=== PATIENT | female | born 1995 | race Caucasian/White ===

== ENCOUNTER 2016-10-14 04:59 | Inpatient (IN) | payer OTHER ==
--- NOTE | ~2016-10-14 | PN ---
Unit #: [id number] #: [id number] Patient: MIA GOLDEN [id number] [facility] [address] [place] [address] [id number] I MR#: [id number] NAME: MIA GOLDEN. ROOM: [facility] Age: 21 Sex: F Admission Date: 10/14/2016 : 1995 Attending Physician: Eddie Groves M.D. Admitting Physician: Eddie Groves M.D. Primary Care Physician: Primary Care Physician Heather JORDAN PROGRESS NOTES DATE 10/15/2016 DISCUSSION Ms. Golden is a 21-year-old white female who was seen today and chart was reviewed and case was discussed with the staff. She has been anxious, withdrawn and rather seclusive to herself. Meanwhile, she has been taking medications and tolerating them fairly well with no reported side effects. MENTAL STATUS EXAMINATION Young white female who was casually dressed with fair personal hygiene and appears to be in no acute distress or discomfort. She was awake and alert on interaction with intact orientation. Her mood was anxious with congruent affect. Her speech is slow and goal-directed. She denies any suicidal or homicidal ideations. Her insight and judgement remains slightly impaired. TREATMENT PLAN 1. Will continue on current medications and treatment protocol. Will monitor her response to the medications and make further adjustments as needed. 2. Will continue to follow up. Dictated by... Eugene Gatica/iron TD: 10/15/2016 21:00 JOB #: [id number] Unit #: [id number] #: [id number] Patient: MIA GOLDEN JULIAN PROGRESS NOTES Page 1 of 1 X Eddie Groves MD PROGRESS NOTE
--- NOTE | ~2016-10-14 | CO ---
Unit #: [id number] #: [id number] Patient: MIA OLIVER [id number] [facility] [address] [place] [address] [id number] MR#: [id number] NAME: MIA OLIVER. ROOM: [facility] Age: 21 Sex: F Admission Date: 10/14/2016 : 1995 Attending Physician: Eddie Groves M.D. Primary Care Physician: Primary Care Physician No Consultation Date: 10/14/2016 CONSULTATION REPORT REVISED REPORT SUBJECTIVE Mia was seen for her admission H and P on 10/14/2016. At that time, she reported to us that she had been diagnosed with chlamydia, had been given a prescription but was noncompliant with that. This was addressed under her admission H and P. Please see H and P dated 10/14/2016. Dictated by... Pippa Matta P.A.-C. for Eugene Mcmanus/robbi TD: 10/14/2016 18:55 JOB #: [id number] CONSULTATION REPORT Page 1 of 1 X Pippa Matta CONSULTATION REPORT
--- NOTE | ~2016-10-14 | HP ---
Unit #: [id number] #: [id number] Patient: MIA OLIVER [id number] [place] [address] [id number] MR#: [id number] NAME: MIA OLIVER. ROOM: [facility] Age: 21 Sex: F Admission Date: 10/14/2016 : 1995 Attending Physician: Eddie Groves M.D. Admitting Physician: Eddie Groves M.D. Primary Care Physician: Primary Care Physician No HISTORY AND PHYSICAL HISTORY OF PRESENT ILLNESS Mia is a 21 year old admitted to [facility] because of her polysubstance abuse which includes IV heroin and methamphetamine. PAST MEDICAL HISTORY 1. Long history of poly-illicit substance abuse to include IV drugs. 2. Hepatitis C. 3. Morbid obesity. PAST SURGICAL HISTORY Nothing reported. ALLERGIES No known drug allergies. SOCIAL HISTORY Smokes 1 pack per day. Denies alcohol. Admits to a long history of illicit substance abuse to include IV heroin and methamphetamine. FAMILY HISTORY Medically noncontributory. REVIEW OF SYSTEMS CONSTITUTIONAL: No fever or chills. HEENT: Denies any sore throat, ear pain or runny nose. CARDIOVASCULAR: Denies chest pain, irregular heart rhythm or palpitations. CHEST: Denies shortness of breath or cough. No hemoptysis. GASTROINTESTINAL: Denies nausea, vomiting, diarrhea or chronic constipation. ENDOCRINE: Denies history of increased thirst or urination. No recent significant weight loss or gain. GENITOURINARY: Denies dysuria, frequency, or hematuria. SKIN: Denies any rashes. HEMATOLOGIC: Denies history of increased bleeding or bruising. MUSCULOSKELETAL: Denies any hot, swollen joints. No generalized muscle pain. NEUROLOGIC: Denies problems with vision or speech. No frequent, severe headaches. No numbness, tingling or weakness in any extremities. Denies loss of bladder or bowel control. CURRENT MEDICATIONS Detox protocol. Unit #: [id number] #: [id number] Patient: MIA OLIVER PHYSICAL EXAMINATION GENERAL: Alert, well-nourished, in no apparent distress. VITAL SIGNS: Blood pressure 110/60, heart rate 80, respirations 16, temperature 98.6. WEIGHT: 210. HEIGHT: 5 feet 8 inches. SKIN: Warm and dry without rash or lesion. HEENT: Normocephalic. TMs not viewed. Oral and nasal passages clear. Conjunctivae clear. PERRLA. EOMs intact. NECK: Supple without lymphadenopathy or thyromegaly. HEART: Regular rate and rhythm without murmur. LUNGS: Clear. ABDOMEN: Soft, nontender. : Not done. EXTREMITIES: No evidence of cyanosis, clubbing or edema. Moves all without focal deficit. NEUROLOGICAL: Grossly within normal limits. Cranial Nerves: II: Visual jacobs are intact. III, IV AND : Extraocular movements are intact. Pupils are equal, round and reactive to light. V: Facial sensation is grossly normal. VII: Facial movements and expression are normal. VIII: Auditory acuity grossly intact. IX, X: Uvula is midline. Phonation is normal. XI: Patient shrugs shoulders and turns head normally. XII: Tongue protrudes in the midline. Sensory and Motor Function: Sensory and motor sensation is grossly normal. Motor: moves all extremities well. Coordination: Gait is normal. Deep Tendon Reflexes: Intact. IMPRESSION 1. Psychiatric admission. 2. Long history of illicit substance abuse to include IV drugs. 3. Hepatitis C. 4. Patient reports that she was diagnosed with Chlamydia prior to this admission. She was given prescription but has been noncompliant with that. RECOMMENDATIONS PSYCHIATRIC: Per psychiatrist. MEDICAL: 1. See no contraindications to participate in facility's activities. 2. Detox per protocol. 3. Patient can follow up with her PCP concerning the diagnosis of Chlamydia. She is encouraged to finish the medication that has already been prescribed for her. MEDICAL PROGNOSIS Good. MEDICAL CONDITION Stable. Dictated by... Pippa Matta P.A.-C. for Kaitlin Dumont M.D. Unit #: [id number] #: [id number] Patient: MIA OLIVER AMARI/iron TD: 10/14/2016 18:33 JOB #: [id number] HISTORY AND PHYSICAL Page 1 of 1 X Pippa Matta HISTORY AND PHYSICAL
--- NOTE | ~2016-10-14 | PN ---
Unit #: [id number] #: [id number] Patient: MIA GOLDEN [id number] [facility] [address] [place] [address] [id number] I MR#: [id number] NAME: MIA GOLDEN. ROOM: [facility] Age: 21 Sex: F Admission Date: 10/14/2016 : 1995 Attending Physician: Eddie Groves M.D. Admitting Physician: Eddie Groves M.D. Primary Care Physician: Primary Care Physician Heather JORDAN PROGRESS NOTES DATE 10/16/2016 DISCUSSION Ms. Golden is a 21-year-old white female who was seen today and chart was reviewed and case was discussed with the staff. She has been anxious though reports doing better in her mood and depression and has been functioning very well and has been taking medications and tolerating them fairly well. MENTAL STATUS EXAMINATION Young white female who was casually dressed with fair personal hygiene and appears to be in no acute distress or discomfort. She was awake and alert on interaction with intact orientation. Her mood was anxious and depressed with congruent affect. Her speech is slow and . She denies any suicidal or homicidal ideations. Her insight and judgement remains slightly impaired. TREATMENT PLAN Will continue on current treatment protocol. Will monitor her response to the medications. Will consider doing discharge planning tomorrow. Dictated by... Eugene Gatica/iron TD: 10/16/2016 16:19 JOB #: [id number] Unit #: [id number] #: [id number] Patient: MIA GOLDEN PEAEUGENIO PROGRESS NOTES Page 1 of 1 X Eddie Groves MD X PROGRESS NOTE
--- NOTE | ~2016-10-14 | PA ---
Unit #: [id number] #: [id number] Patient: MIA OLIVER [id number] [facility] [address] [place] [address] [id number] I MR#: [id number] NAME: MIA OLIVER. ROOM: 82 Age: 21 Sex: F Admission Date: 10/14/2016 : 1995 Date of Assessment: Attending Physician: Eddie Groves M.D. Admitting Physician: Eddie Groves M.D. Primary Care Physician: Primary Care Physician No PSYCHIATRIC ASSESSMENT DATE OF SERVICE 10/14/2016. IDENTIFYING DATA Ms. Berrios is a 21-year-old single white female, who is a resident of [place], [place], and was self-referred to the hospital on a voluntary basis. CHIEF COMPLAINT "Increase in having suicidal thoughts, trying to get my life back." HISTORY OF PRESENT ILLNESS Ms. Berrios is a 21-year-old white female, who was self-referred to the hospital, stating she is scared of herself and that she has been having suicidal thoughts and she is trying to get her life back, "but due to my addiction to heroin." The patient reports that she feels hopeless and helpless, and that she has been in [place], [place] for the past year until she returned back to [place], [place] about 2 weeks ago and reports that she quit her job over a year ago due to her addiction to drugs and reports that she has been homeless for the last 2 years, living here and there, and her mother when the patient was 9 years old and father was not a major part of the patient's life and the patient reports no income and having contracted hepatitis C limited to no support system, increasing depression with feelings of hopelessness and helplessness, and suicidal ideations and was seen to be a danger to self and as such, recommendation for inpatient level of care for safety and stabilization was made and the patient was admitted to the inpatient unit. SUBSTANCE ABUSE HISTORY The patient reports extensive history of substance abuse and dependence including alcohol, cannabis, opioids, amphetamines, and benzodiazepines, and currently opioids appear to be her drug of choice. She reports that she has been using 1 to 2 g of IV heroin a day and also has been using methamphetamine IV few days a week and has been smoking cannabis on everyday basis. PAST PSYCHIATRIC HISTORY The patient has had history of chemical dependency [facility] at [facility], at the [facility] in [place], as well as at [facility] in [place], [place], and [facility], and review of the medical records indicate currently she is not active in treatment program, is not seeing a psychiatrist, not taking any psychotropic medications. Unit #: [id number] #: [id number] Patient: MIA OLIVER PAST MEDICAL HISTORY The patient's medical history is significant for hepatitis C. ALLERGIES No known medication allergies. PERSONAL AND SOCIAL HISTORY A 21-year-old white female, who reports that she is single, unemployed, and essentially homeless and has poor social support system. MENTAL STATUS EXAMINATION Young white female who was casually dressed with fair personal hygiene, appears to be in no acute distress or discomfort. She was awake and alert on interaction with intact orientation to time, place, and person. Her mood was anxious with a congruent affect. Her speech was slow and restricted in content. Her thought processes were disorganized with some looseness of associations and suicidal ideations. Her insight and judgment remain significantly impaired. DIAGNOSTIC IMPRESSION Psychiatric: Major depressive disorder, recurrent, moderate, without psychotic features; opioid dependence, moderate and acute withdrawals; methamphetamine abuse, moderate; cannabis dependence, moderate. Medical: Hepatitis C. Stressors: Moderate psychosocial stressors. TREATMENT PLAN 1. The patient has presented with history of substance abuse and mood disorder, and has been decompensating and will need inpatient hospitalization for safety and stabilization. We will start her back on her home medications. We will adjust the medications and monitor response. 2. Supportive therapy was provided to the patient. 3. Safe, structured, and nourishing environment will be provided. ESTIMATED LENGTH OF STAY 5 to 7 days. ABILITY TO HELP SELF Limited. WILLINGNESS TO HELP SELF The patient appears to be willing to help self. STRENGTHS 1. Communicative. 2. Cooperative. PROBLEMS 1. Chronic dysphoric symptoms. 2. Chronic chemical dependency. 3. Poor social support system. DISCHARGE CRITERIA This will be contingent upon the patient's ability to show resolution of her depression and anxiety and her ability to go through detox without having any significant withdrawal symptoms as well as her ability to stay safe to herself, particularly after discharge from the hospital. Unit #: [id number] #: [id number] Patient: MIA OLIVER by... Eugene Gatica/robbi TD: 10/14/2016 07:51 JOB #: [id number] PSYCHIATRIC ASSESSMENT Page 1 of 1 X Eddie Groves MD PSYCHIATRIC ASSESSMENT
--- NOTE | ~2016-10-14 | DS ---
Unit #: [id number] #: [id number] [facility] [id number] [facility] [address] [place] [address] [id number] I MR#: [id number] NAME: MIA OLIVER. ROOM: [facility] Age: 21 Sex: F Admission Date: 10/14/2016 : 1995 Discharge Date: 10/17/2016 Attending Physician: Eddie Groves M.D. Primary Care Physician: Primary Care Physician No DISCHARGE SUMMARY IDENTIFYING DATA Ms. Oliver is a 21-year-old single white female, who is a resident of [place], [place], and was self-referred to the hospital on a voluntary basis. DISCHARGE DIAGNOSES Psychiatric: Major depressive disorder, recurrent, moderate, without psychotic features; opioid dependence, moderate and acute withdrawals; methamphetamine dependence, moderate; cannabis abuse, moderate. Medical: Hepatitis C. Stressors: Moderate psychosocial stressors. HISTORY OF PRESENT ILLNESS Please see initial psychiatric evaluation for details. PAST PSYCHIATRIC HISTORY Please see initial psychiatric evaluation for details. PAST MEDICAL HISTORY Please see initial psychiatric evaluation for details. HOSPITAL COURSE The [facility] and was oriented to the hospital environment. Routine p.r.n. medications were initiated, and she was started back on her home medications and detox protocol was initiated. However, the patient was seen to be showing very poor insight into her situation, was not really participating much in treatment related activities and was rather trying to flirt with other male patients. She was also not really carrying on much conversation with me and then she just decided that she wanted to leave and was forcing to leave and even though I encouraged and recommended that she should complete and continue the treatment, she was not willing to follow up with treatment recommendations and was denying any suicidal or homicidal ideations, and was not meeting criteria for involuntary psychiatric hospitalization and as such, it was decided that she will be discharged home and will continue treatment on an outpatient basis. DISCHARGE MEDICATIONS None. DISCHARGE CONDITION Stable. Unit #: [id number] #: [id number] Patient: MIA OLIVER PROGNOSIS Fair. Dictated by... Eugene Gatica/robbi TD: 10/17/2016 06:24 JOB #: [id number] DISCHARGE SUMMARY Page 1 of 1 X Eddie Groves MD DISCHARGE SUMMARY
[~2016-10-14 04:59] MED LIST: ADDERALL PO; ADDERALL10 MG; ADDERALLXR PO; BACTRIM DS TABL1 TA1 PO; BACTROBAN22 GM TOP; DESYREL50 M1 PO; DOXYCYCLINE150 MG PO; FLEXERIL10 MG PO; PHENERGAN25 MG PO; PRILOSEC20 MG DOB; PROZAC PO; PYRIDIUM; ULTRAM PO; VICODIN 5/1 TAB 5/50 PO; VYVANSE50 MG PO; [UNRECOGNIZED DRUG - OTHER]
[2016-10-14 09:37] LABS: BASOPHIL% 0.4 % (0-2.5); EOSINOPHIL# 0.3 X10e3 (0-0.7); EOSINOPHIL% 3.8 % (0.0-7.0); HEMATOCRIT 35.5 % (35.0-45.0); HEMOGLOBIN 11.4 gm/dL (12.0-16.0); LYMPHOCYTE# 2.6 X10e3 (1.0-3.5); LYMPHOCYTE% 35.1 % (17.0-45.0); MEAN CELL VOLUME 84.5 FL (83-96); MEAN CORPUSCULAR HEMOGLOBIN 27.2 PG (28-34); MEAN CORPUSCULAR HGB CONC 32.2 g/dL (30-36); MEAN PLATELET VOLUME 7.3 FL (6.5-11.5); MONOCYTE# 0.7 X10e3 (0-1.0); MONOCYTE% 9.4 % (3.0-12.0); NEUTROPHIL# 3.9 X10e3 (1.5-7.1); NEUTROPHIL% 51.3 % (40-75); PLATELET COUNT 285 X10e3 (140-420); WHITE BLOOD COUNT 7.5 X10e3 (4.0-10.5)
[2016-10-14 09:38] LABS: URINE APPEARANCE TURBID; URINE BILIRUBIN NEG (NEG); URINE BLOOD NEG (NEG); URINE COLOR DK YELLOW; URINE GLUCOSE NEG (NEG); URINE KETONE TRACE (NEG); URINE LEUKOCYTE ESTERASE NEG (NEG); URINE NITRATE NEG (NEG); URINE PH 5.5 (5-8); URINE PROTEIN 2+ (NEG); URINE SPECIFIC GRAVITY 1.025 (1.003-1.035)
[2016-10-14 09:40] LABS: URBCS1 AUWI 0-2 /[HPF] (0-2); URINE BACTERIA AUWI NEG (NEGATIVE); URINE SQUAMOUS EPITHELIAL CELL OCC /[HPF]
[2016-10-14 09:43] LABS: DIFF IND NO
[2016-10-14 09:58] LABS: THYROID STIMULATING HORMONE 1.2 uIU/ml (0.34-5.60)
[2016-10-14 10:05] LABS: FREE THYROXIN (T4) 0.92 ng/dL (0.58-1.64)
[2016-10-14 10:22] LABS: ALBUMIN SERUM 3.4 g/dL (3.5-5.0); BILIRUBIN,TOTAL 0.2 mg/dL (0.2-2.0); CALCIUM SERUM 8.6 mg/dL (8.4-10.2); CREATININE SERUM 0.8 mg/dL (0.6-1.4); GLOM FILT RATE Estimated 105.5 mL/min (>60); POTASSIUM 3.9 mmol/L (3.5-5.1); PROTEIN TOTAL SERUM 6.7 g/dL (6.0-8.3)
[2016-10-14 10:33] LABS: AMPHETAMINE POS (NEG); BARBITURATES NEG (NEG); BENZODIAZEPINES NEG (NEG); COCAINE NEG (NEG); MARIJUANA POS (NEG); OPIATES POS (NEG); TRICYCLIC ANTIDEPRESSANTS NEG (NEG); U METHADONE NEG (NEG)
== END 2016-10-17 09:40 | disposition home or self-care (01) | DRG 885 ==
LOC: P1E 04:59
PROVIDERS: Psychiatry & Neurology Psychiatry
PROC: HZ2ZZZZ Detoxification Services for Substance Abuse Treatment (ICD-10-PCS; principal; 2016-10-14)
DX: F31.32 Bipolar disorder, current episode depressed, moderate (principal); R45.851 Suicidal ideations; E66.01 Morbid (severe) obesity due to excess calories; F11.23 Opioid dependence with withdrawal; F17.210 Nicotine dependence, cigarettes, uncomplicated
CPT/HCPCS: 80053; 80307; 81003; 84439; 84443; 84703; 85025; 86592